=== PATIENT | female | born 1970 | race Caucasian/White ===

== ENCOUNTER 2019-03-20 19:36 | Emergency (ER) | payer SELFPAY ==
[~2019-03-20] VITALS: Ht 162.6 cm; Wt 93.7 kg
[2019-03-20 21:05] LABS: BASOPHIL % 0.3 % (0-2); PLATELET COUNT 198 x10^3mcL (130-400); RED CELL DISTRIBUTION WIDTH 13.5 % (11.5-14.5)
[2019-03-20 21:07] LABS: CALCIUM 8.5 mg/dL (8.5-10.1); CARBON DIOXIDE 30.2 mmol/L (21-32); CHLORIDE SERUM 105 mmol/L (98-107); CREATININE SERUM 0.9 mg/dL (0.6-1.0); GFR1 > 60 mL/min; GLUCOSE SERUM 99 mg/dL (74-106); POTASSIUM SERUM 3.8 mmol/L (3.5-5.1); SODIUM SERUM 142 mmol/L (136-145)
[2019-03-20 21:12] LABS: ALBUMIN 3.7 g/dL (3.4-5.0); ALKALINE PHOSPHATASE 113 U/L (46-116); ALT/SGPT 28 U/L (14-59); AST/SGOT 16 U/L (15-37); BILIRUBIN TOTAL 0.25 mg/dL (0.20-1.00); TOTAL PROTEIN, SERUM 7.5 g/dL (6.4-8.2)
[2019-03-20 23:14] VITALS: BP 108/67
== END 2019-03-20 23:14 | disposition home or self-care (01) ==
LOC: ED 19:36
PROVIDERS: Emergency Medicine
DX: R10.9 Unspecified abdominal pain (principal); R30.0 Dysuria; R39.15 Urgency of urination; E11.9 Type 2 diabetes mellitus without complications
CPT/HCPCS: 36415; J1885